=== PATIENT | male | born 1965 | race Caucasian/White ===

== ENCOUNTER → 2020-04-25 | Outpatient (CLI) | payer BC ==
[~2020-04-25] MED LIST: ACET-1600 PO; CARV6.252 PO; LACT1CAP35 PO; LOSA1TAB22 PO; None at this time; TRAM50TA2 PO
[2020-04-25 13:40] LABS: MICROSCOPIC NOT IND
[2020-04-25 13:43] LABS: BASOPHILS # (AUTO) 0.03 x10^3/uL (0-0.1); BASOPHILS % (AUTO) 0 % (0-1); EOSINOPHILS # (AUTO) 0.15 x10^3/uL (0-0.4); EOSINOPHILS % (AUTO) 2 % (1-7); LYMPHOCYTES # (AUTO) 3.13 x10^3/uL (1-3.4); LYMPHOCYTES % (AUTO) 39 % (22-44); MD NO; MEAN CORPUSCULAR HEMOGLOBIN 29.3 pg (27.5-34.5); MEAN CORPUSCULAR HGB CONC 32.8 g/dL (33.2-36.2); MEAN CORPUSCULAR VOLUME 89.4 fL (81-97); MEAN PLATELET VOLUME 11.8 fL (7.4-10.4); MONOCYTES # (AUTO) 0.67 x10^3/uL (0.2-0.8); MONOCYTES % (AUTO) 8 % (2-9); NEUTROPHILS # (AUTO) 4.13 x10^3/uL (1.8-6.8); NEUTROPHILS % (AUTO) 51 % (42-75); PLATELET COUNT 179 x10^3/uL (130-400); RED BLOOD COUNT 5.06 x10^6/uL (4.38-5.82); RED CELL DISTRIBUTION WIDTH 14.2 % (9.4-14.8)
[2020-04-25 16:45] LABS: ALBUMIN 3.7 g/dL (3.4-5.0); ANION GAP 6 mmol/L (5-15); CALCIUM 9.1 mg/dL (8.5-10.1); CHLORIDE 105 mmol/L (98-107)
[2020-04-25 16:50] LABS: ALANINE AMINOTRANSFERASE 50 U/L (12-78); ALKALINE PHOSPHATASE 41 U/L (45-117); BILIRUBIN,TOTAL 0.5 mg/dL (0.2-1.0); CREATININE 0.95 mg/dL (0.7-1.3); TOTAL PROTEIN 7.8 g/dL (6.4-8.2)
== END | disposition home or self-care (01) ==
LOC: STAR 11:50
PROVIDERS: ATTEND Orthopaedic Surgery Orthopaedic Surgery of the Spine
DX: Z01.818 Encounter for other preprocedural examination (principal); Z20.828 Contact with and (suspected) exposure to other viral communicable diseases; M51.26 Other intervertebral disc displacement, lumbar region
CPT/HCPCS: 36415; 71046; 80053; 81003; 85025; 87635; 93005

== ENCOUNTER 2020-04-29 06:46 | Day surgery (SDC) | payer BC ==
[~2020-04-29] VITALS: Ht 177.8 cm; Wt 111.0 kg
[2020-04-29] MEDS ORDERED: LACTATED RINGERS 1,000 ML IV SCH (07:01)
[2020-04-29] MEDS ORDERED: CHLORHEXIDINE 15 ML UDC MM STA (07:02)
[2020-04-29] MEDS ORDERED: CHLORHEXIDINE 15 ML UDC ONE (07:07)
[2020-04-29 07:17] VITALS: BP 128/88
[2020-04-29] MEDS ORDERED: FENTANYL PF 250 MCG/5ML ONE (08:16)
[2020-04-29] MEDS ORDERED: MIDAZOLAM 1 MG/ML, 2ML ONE (08:16)
[2020-04-29] MEDS ORDERED: CEFAZOLIN 1,000 MG ONE (08:19)
[2020-04-29] MEDS ORDERED: ONDANSETRON 2MG/ML, 2ML ONE (08:19)
[2020-04-29] MEDS ORDERED: DEXAMETHASONE 4 MG/ML, 1ML ONE (08:19)
[2020-04-29] MEDS ORDERED: GLYCOPYRROLATE 0.2MG/1ML, 5ML ONE (08:19)
[2020-04-29] MEDS ORDERED: NEOSTIGMINE 1 MG/ML, 10ML ONE (08:19)
[2020-04-29] MEDS ORDERED: ROCURONIUM 10MG/ML,5ML ONE ×2 (08:19→09:41)
[2020-04-29] MEDS ORDERED: PROPOFOL 10 MG/ML, 20ML ONE (08:19)
[2020-04-29] MEDS ORDERED: EPINEPHRINE 1 MG/ML, 1ML ONE (08:26)
[2020-04-29] MEDS ORDERED: LIDOCAINE/PF 0.5% ,50ML ONE (08:26)
[2020-04-29] MEDS ORDERED: BUPIVACAINE/PF 0.25% ONE (08:26)
[2020-04-29] MEDS ORDERED: VANCOMYCIN 1,000 MG ONE (08:26)
[2020-04-29] MEDS ORDERED: hydrALAzine 20 MG/ML, 1ML IV PRN (09:00)
[2020-04-29] MEDS ORDERED: ONDANSETRON 2MG/ML, 2ML IVPush PRN (09:00)
[2020-04-29] MEDS ORDERED: ACETAMINOPHEN 325 MG TABLET PO PRN (09:00)
[2020-04-29] MEDS ORDERED: FENTANYL PF 100 MCG/2ML IV PRN (09:00)
[2020-04-29] MEDS ORDERED: MEPERIDINE/PF 25MG/0.5ML IVPush PRN (09:00)
[2020-04-29] MEDS ORDERED: morphine SULFATE 10 MG/ML, 1ML IVPush PRN (09:00)
[2020-04-29] MEDS ORDERED: LABETALOL 5MG/ML, 20ML IV PRN (09:00)
[2020-04-29] MEDS ORDERED: HYDROmorphone 1 MG/ML, 1ML INJ IVPush PRN (09:00)
[2020-04-29] MEDS ORDERED: OXYcodone 5 MG/5 ML ORAL.SOL UDC PO PRN (09:00)
[2020-04-29] MEDS ORDERED: HYDROcodone/APAP 5/325 TABLET ONE (14:10)
[2020-04-29] MEDS ORDERED: HYDROcodone/APAP 10/325 MG TABLET PO PRN (14:30)
== END 2020-04-29 14:35 | disposition home or self-care (01) ==
LOC: OUT 06:46
PROVIDERS: ATTEND Orthopaedic Surgery Orthopaedic Surgery of the Spine
DX: M51.16 Intervertebral disc disorders with radiculopathy, lumbar region (principal); M48.061 Spinal stenosis, lumbar region without neurogenic claudication; M21.372 Foot drop, left foot; M21.371 Foot drop, right foot; I10 Essential (primary) hypertension; Z79.891 Long term (current) use of opiate analgesic; Z79.899 Other long term (current) drug therapy; Z98.890 Other specified postprocedural states
CPT/HCPCS: 63030; 72100; C1760; J0171; J0690; J1100; J2001; J2250; J2270; J2405; J2704; J2710; J3010; J3370; J3490; J7120